=== PATIENT | male | born 1975 | race Two or more races ===

== ENCOUNTER 2018-04-12 18:09 | Observation (INO) | payer OTHER ==
[2018-04-12] MEDS ORDERED: SODIUM CHLORIDE 0.9% 500 ML INFUS.BAG IV ONE (18:34)
[2018-04-12] MEDS ORDERED: ONDANSETRON 4 MG/2 ML VIAL IVPUSH ONE (18:34)
[2018-04-12] MEDS ORDERED: ACETAMINOPHEN 1000 MG/100 ML VIAL (NON FORMULARY) IVPB ONE (18:34)
--- NOTE | 2018-04-12 18:36 | PDOC ---
Rapid Medical Evaluation Chief Complaint: Pain Time Seen by Provider: 04/12/18 18:30 Medical Evaluation: Allergies Allergy/AdvReac Type Severity Reaction Status Date / Time No Known Drug Allergies Allergy Verified 04/12/18 18:30 04/12/18 18:31 42 year old with RUQ pain radiating from right posterior. + nausea pain 10/. denies flank pain, urinary symptoms PE: patient alert ox3 epigastric to RUQ tenderness. no CVAT A: abdominal pain P: labs u/s ua patient to the ER for further management of care. 04/12/18 18:35 Discharge Disposition - Diagnosis Epigastric abdominal pain - Referrals Referrals: Rodriguez Baez MD [Primary Care Provider] - - Patient Instructions - Post Discharge Activity
[2018-04-12] MEDS ORDERED: ACETAMINOPHEN INJECTION 100 ML IVPB ONE (19:06)
[2018-04-12] MEDS ORDERED: ONDANSETRON 4 MG/2 ML VIAL ONE (19:07)
[2018-04-12 19:20] LABS: BASO % 0.4 % (0-2.0); EOS % 0.8 % (0-4.5); HEMATOCRIT 43.9 % (35.4-49); HEMOGLOBIN 14.7 GM/dL (11.7-16.9); LYMPH % 23.4 % (8-40); MCH 28.6 pg (25.7-33.7); MCHC 33.6 g/dl (32.0-35.9); MEAN CELL VOLUME 85.3 fl (80-96); MEAN PLT VOLUME 9.2 fl (7.5-11.1); MONO % 6.4 % (3.8-10.2); PLATELET COUNT 227 K/MM3 (134-434); RBC 5.15 M/mm3 (4.00-5.60); RDW 13.1 % (11.9-15.9); WHITE BLOOD COUNT 9.9 K/mm3 (4.0-10.0)
[2018-04-12] MEDS ORDERED: ONDANSETRON 4 MG/2 ML VIAL IVPB ONE (19:22)
--- NOTE | 2018-04-12 19:41 | PDOC ---
History of Present Illness - General Chief Complaint: Pain, Acute Stated Complaint: BACK PAIN/ABD PAIN Time Seen by Provider: 04/12/18 18:30 History Source: Patient Exam Limitations: No Limitations - History of Present Illness Initial Comments: 42 y/o M hx of GERD, R kidney stone (around 10 years ago, s/p lithotripsy), presents with upper back back that started around 3:30 PM which eventually subsided and then an hour later, had sharp upper abdominal pain (most intense along epigastric site) with nausea and dry heaving. Patient took 1000 mg of Tylenol at home. Denies having pain around this location before and states it does not feel like his GERD. Denies other abdominal surgeries. Denies fever, chills, sob, cp, vomiting, diarrhea, black/bloody stools, dysuria, hematuria. Denies smoking or drug use. Is social alcohol drinker (drinks only on weekends) 04/12/18 19:38 Past History - Past Medical History Allergies/Adverse Reactions: Allergies Allergy/AdvReac Type Severity Reaction Status Date / Time No Known Drug Allergies Allergy Verified 04/12/18 18:30 Home Medications: Ambulatory Orders Omeprazole 40 mg PO PRN 12/03/17 COPD: No GI Disorders: Yes (ACID REFLUX) - Suicide/Smoking/Psychosocial Hx Smoking History: Former smoker Have you smoked in the past 12 months: No If you are a former smoker, when did you quit?: 9 YRS AGO Information on smoking cessation initiated: No Hx Alcohol Use: Yes (SOCIAL) Drug/Substance Use Hx: No Substance Use Type: Alcohol Hx Substance Use Treatment: No Abd/GI Specific PMHX - Complaint Specific PMHX Colitis: No Diverticulitis: No Gall Bladder Disease: No GERD: Yes Hepatitis: No Irritable Bowel Synd (IBS): No Pancreatitis: No GI Ulcer Disease: No Other History: Kidney stones (right) Review of Systems - Review of Systems Comments:: See HPI 04/12/18 19:41 *Physical Exam - Vital Signs Last Vital Signs Temp Pulse Resp BP Pulse Ox 97.9 F 82 19 154/74 96 04/12/18 18:30 04/12/18 18:30 04/12/18 18:30 04/12/18 18:30 04/12/18 18:30 - Physical Exam General Appearance: No: Apparent Distress Respiratory/Chest: positive: Lungs Clear, Normal Breath Sounds. negative: Respiratory Distress Cardiovascular: positive: Regular Rhythm, Regular Rate, S1, S2. negative: Murmur Gastrointestinal/Abdominal: positive: Normal Bowel Sounds, Soft, Other ( Negative 's sign). negative: Tender, Distended, Guarding, Rebound, Tenderness Musculoskeletal: negative: CVA Tenderness Extremity: positive: Normal Inspection. negative: Pedal Edema, Calf Tenderness Neurologic: positive: Fully Oriented, Alert, Normal Mood/Affect ED Treatment Course - LABORATORY CBC & Chemistry Diagram: 04/12/18 19:03 04/12/18 19:03 - ADDITIONAL ORDERS Additional order review: 04/12/18 19:03 RBC 5.15 MCV 85.3 MCHC 33.6 RDW 13.1 MPV 9.2 Neutrophils % 69.0 Lymphocytes % 23.4 D Monocytes % 6.4 Eosinophils % 0.8 Basophils % 0.4 - Medications Given in the ED: ED Medications Discontinued Medications Generic Name Dose Route Start Last Admin Trade Name Freq PRN Reason Stop Dose Admin Acetaminophen 1,000 mg 04/12/18 18:34 04/12/18 19:16 Ofirmev Injection - IVPB 04/12/18 18:35 1,000 mg ONCE ONE Administration Ondansetron HCl 4 mg 04/12/18 18:34 04/12/18 19:26 Zofran Injection IVPUSH 04/12/18 18:35 Not Given ONCE ONE Ondansetron HCl 4 mg 04/12/18 19:22 04/12/18 19:25 Zofran Injection IVPB 04/12/18 19:23 4 mg ONCE ONE Administration Sodium Chloride 1,000 ml 04/12/18 18:34 04/12/18 19:16 Normal Saline - IV 04/12/18 18:35 1,000 ml ONCE ONE Administration Medical Decision Making - Medical Decision Making 42 y/o M hx of GERD presents with upper abdominal pain now improved from 8/10 to 5/10 after taking Tylenol. PE unremarkable. Consider gallstones, pancreatitis , cholecystitis, kidney stones Plan: CBC, CMP, lipase, UA, IVF, Zofran, RUQ ultrasound Reassess 04/12/18 19:41 Patient was reassessed and in no pain currently. Labs show normal LFTs and lipase; UA negative RUQ ultrasound raises concern for acute cholecystitis Patient given dose of Zosyn Case was discussed with surgeon, Dr. Pamella Flanagan, who stated patient not candidate for cholecystectomy; can likely go outpatient on Augmentin However, as case discussed with ED attending, will admit patient as observation for further monitoring Plan of care discussed with patient Patient admitted under Dr. Lemus 04/12/18 21:57 *DC/Admit/Observation/Transfer Diagnosis at time of Disposition: Epigastric abdominal pain, Cholecystitis - Discharge Dispostion Decision to Admit order: Yes - Referrals Referrals: Rodriguez Baez MD [Primary Care Provider] - - Patient Instructions - Post Discharge Activity
[2018-04-12 19:46] LABS: URINE APPEARANCE CLEAR; URINE BILIRUBIN NEGATIVE (<2.0 mg/dL); URINE COLOR LTYELLOW; URINE GLUCOSE (UA) NEGATIVE (NEGATIVE); URINE KETONE NEGATIVE (NEGATIVE); URINE LEUK ESTERASE NEGATIVE (NEGATIVE); URINE NITRITE NEGATIVE (NEGATIVE); URINE PROTEIN NEGATIVE (NEGATIVE); URINE UROBILINOGEN NEGATIVE mg/dL (0.2-1.0)
[2018-04-12 19:49] LABS: ALBUMIN 4.2 g/dl (3.4-5.0); ALK PHOS 121 U/L (45-117); ANION GAP 7 MMOL/L (8-16); BILIRUBIN,TOTAL 0.7 mg/dL (0.2-1); BLOOD UREA NITROGEN 10 mg/dL (7-18); CALCIUM 8.6 mg/dL (8.5-10.1); CHLORIDE 103 mmol/L (98-107); CO2 26 mmol/L (21-32); CREATININE 0.9 mg/dL (0.55-1.3); GLUCOSE,RANDOM 101 mg/dL (74-106); LIPASE 271 U/L (73-393); POTASSIUM 4.1 mmol/L (3.5-5.1); SGOT/AST 26 U/L (15-37); SGPT/ALT 61 U/L (13-61); SODIUM 136 mmol/L (136-145); TOT PROT 7.9 g/dl (6.4-8.2)
[2018-04-12] MEDS ORDERED: PIPERACILLIN/TAZOB 3.375 GM 3.375 GM in DEXTROSE 5%-WATER - 50 ML IVPB ONE (21:17)
[2018-04-12] MEDS ORDERED: PIPERACILLIN/TAZOB 3.375 GM 3.375 GM/50 ML BAG IVPB ONE (21:50)
--- NOTE | 2018-04-12 22:23 | PDOC ---
*Physical Exam - Vital Signs Last Vital Signs Temp Pulse Resp BP Pulse Ox 97.9 F 82 19 154/74 96 04/12/18 18:30 04/12/18 18:30 04/12/18 18:30 04/12/18 18:30 04/12/18 18:30 - Physical Exam General Appearance: Yes: Nourished Neck: positive: Trachea midline Respiratory/Chest: positive: Lungs Clear, Normal Breath Sounds Cardiovascular: positive: Regular Rhythm, Regular Rate, S1, S2 Gastrointestinal/Abdominal: positive: Normal Bowel Sounds, Tender, Soft, Tenderness (ruq ttp, no rebound no guarding. ), Other Extremity: positive: Normal Capillary Refill Integumentary: positive: Normal Color, Dry, Warm Neurologic: positive: Fully Oriented, Alert, Normal Mood/Affect ED Treatment Course - LABORATORY CBC & Chemistry Diagram: 04/12/18 19:03 04/12/18 19:03 - ADDITIONAL ORDERS Additional order review: Laboratory Results 04/12/18 04/12/18 19:20 19:03 Sodium 136 Potassium 4.1 Chloride 103 Carbon Dioxide 26 Anion Gap 7 L BUN 10 Creatinine 0.9 Creat Clearance w eGFR > 60 Random Glucose 101 Calcium 8.6 Total Bilirubin 0.7 AST 26 ALT 61 Alkaline Phosphatase 121 H Total Protein 7.9 Albumin 4.2 Lipase 271 Urine Color Ltyellow Urine Appearance Clear Urine pH 6.0 Ur Specific [place] 1.018 Urine Protein Negative Urine Glucose (UA) Negative Urine Ketones Negative Urine Blood Negative Urine Nitrite Negative Urine Bilirubin Negative Urine Urobilinogen Negative Ur Leukocyte Esterase Negative 04/12/18 19:03 RBC 5.15 MCV 85.3 MCHC 33.6 RDW 13.1 MPV 9.2 Neutrophils % 69.0 Lymphocytes % 23.4 D Monocytes % 6.4 Eosinophils % 0.8 Basophils % 0.4 - Medications Given in the ED: ED Medications Discontinued Medications Generic Name Dose Route Start Last Admin Trade Name Freq PRN Reason Stop Dose Admin Acetaminophen 1,000 mg 04/12/18 18:34 04/12/18 19:16 Ofirmev Injection - IVPB 04/12/18 18:35 1,000 mg ONCE ONE Administration Piperacillin Sod/Tazobactam 50 mls @ 100 mls/hr 04/12/18 21:17 04/12/18 22:06 Sod 3.375 gm/ Dextrose IVPB 04/12/18 21:46 100 mls/hr ONCE ONE Administration Protocol Ondansetron HCl 4 mg 04/12/18 18:34 04/12/18 19:26 Zofran Injection IVPUSH 04/12/18 18:35 Not Given ONCE ONE Ondansetron HCl 4 mg 04/12/18 19:22 04/12/18 19:25 Zofran Injection IVPB 04/12/18 19:23 4 mg ONCE ONE Administration Sodium Chloride 1,000 ml 04/12/18 18:34 04/12/18 19:16 Normal Saline - IV 04/12/18 18:35 1,000 ml ONCE ONE Administration Medical Decision Making - Medical Decision Making 04/12/18 22:17 42 yo male with h.o renal stones here today c/o upper abd pain, ruq. started today. had severe nausea associated with pain. felt sharp, referred to her back. no f/c no change to stool, no mod factors. reminded him of prior renal stones, but was in different location. no f/c no other copmlaints. no urinary sxs, no hematuria. on exam pt with mild ruq ttp, epigastric ttp. no rebound no guarding. e differential gastritis, pancreatitis cholelithiasis, cholecystitis. renal colic. plan abd us ruq. abd us ruq noted for large 1 cm stone in the neck, distended gb and wall thickening concerns for cholecystitis. will admit for surgery consult. *DC/Admit/Observation/Transfer Diagnosis at time of Disposition: Epigastric abdominal pain, Cholecystitis - Referrals Referrals: Rodriguez Baez MD [Primary Care Provider] - - Patient Instructions - Post Discharge Activity
--- NOTE | 2018-04-12 22:32 | HP ---
CHIEF COMPLAINT: RUQ pain PCP: Dr. Baez HISTORY OF PRESENT ILLNESS: 42 y/o male with PMH of GERD, kidney stones presents to the ED with RUQ and epigastric pain radiating to the right shoulder. Patient states that pain started while he was at work, it was originally the right shoulder pain that began his pain sequence than the epigastric pain followed. patient stated that at its worst the pain was an 8/10. He had some associated dry heaves, however, he had no vomiting or diarrhea. He took two tylenol for the pain, however, that did not help him and so he came to the ER. Of note, patient states that he had a similar episode like this a month ago and came to the ER ad was discharged with medication for his GERD. However, once patient got to the hospital and got 1 more dose of tylenol his pain resolved ER course was notable for: (1)vitals stable (2)labs unremarkable (3)abdominal U/S showing 1 cm calculus in GB neck, moderate gallbladder distention, mild diffuse GB thickening no pericholecystic fluid seen; no CBD dilatation Recent Travel: none PAST MEDICAL HISTORY: see above PAST SURGICAL HISTORY: lithotrypsy 10 years ago for kidney stones Social History: Smoking:former; quit 9 years ago Alcohol:social alcohol use (1-2 drinks on weekends) Drugs: denies Family History: father: DM/HTN/ colon ca 3 years ago Allergies No Known Drug Allergies Allergy (Verified 04/12/18 18:30) HOME MEDICATIONS: Home Medications Medication Instructions Recorded Omeprazole 40 mg PO PRN 12/03/17 REVIEW OF SYSTEMS CONSTITUTIONAL: Absent: fever, chills, diaphoresis, generalized weakness, malaise, loss of appetite, weight change HEENT: Absent: rhinorrhea, nasal congestion, throat pain, throat swelling, difficulty swallowing, mouth swelling, ear pain, eye pain, visual changes CARDIOVASCULAR: Absent: chest pain, syncope, palpitations, irregular heart rate, lightheadedness , peripheral edema RESPIRATORY: Absent: cough, shortness of breath, dyspnea with exertion, orthopnea, wheezing, stridor, hemoptysis GASTROINTESTINAL: Absent: abdominal pain, abdominal distension, nausea, vomiting, diarrhea, constipation, melena, hematochezia GENITOURINARY: Absent: dysuria, frequency, urgency, hesitancy, hematuria, flank pain, genital pain MUSCULOSKELETAL: Absent: myalgia, arthralgia, joint swelling, back pain, neck pain SKIN: Absent: rash, itching, pallor HEMATOLOGIC/IMMUNOLOGIC: Absent: easy bleeding, easy bruising, lymphadenopathy, frequent infections ENDOCRINE: Absent: unexplained weight gain, unexplained weight loss, heat intolerance, cold intolerance NEUROLOGIC: Absent: headache, focal weakness or paresthesias, dizziness, unsteady gait, seizure, mental status changes, bladder or bowel incontinence PSYCHIATRIC: Absent: anxiety, depression, suicidal or homicidal ideation, hallucinations. PHYSICAL EXAMINATION Vital Signs - 24 hr 04/12/18 18:30 Temperature 97.9 F Pulse Rate 82 Respiratory 19 Rate Blood Pressure 154/74 O2 Sat by Pulse 96 Oximetry (%) GENERAL: Awake, alert, and fully oriented, in no acute distress. EYES: no scleral icterus NECK:no JVD, no lymphadenopathy LUNGS: CTA B/L; no rales, rhonchi or wheezing. HEART: Regular rate and rhythm, normal S1 and S2 without murmur, rub or gallop. ABDOMEN: Soft, nontender, not distended, normoactive bowel sounds, no guarding, no rebound, no masses. No hepatomegaly or splenomegaly negative [place] sign. MUSCULOSKELETAL: Normal range of motion at all joints. No bony deformities or tenderness. No CVA tenderness. EXTREMITIES: warm; well-perfused, no clubbing/cyanosis or edema. PSYCHIATRIC: Cooperative. Good eye contact. Appropriate mood and affect. SKIN: Warm, dry, normal turgor, no rashes or lesions noted, normal capillary refill. Laboratory Results - last 24 hr 04/12/18 04/12/18 04/12/18 19:03 19:03 19:20 WBC 9.9 RBC 5.15 Hgb 14.7 Hct 43.9 MCV 85.3 MCH 28.6 MCHC 33.6 RDW 13.1 Plt Count 227 MPV 9.2 Absolute Neuts (auto) 6.9 Neutrophils % 69.0 Lymphocytes % 23.4 D Monocytes % 6.4 Eosinophils % 0.8 Basophils % 0.4 Nucleated RBC % 0 Sodium 136 Potassium 4.1 Chloride 103 Carbon Dioxide 26 Anion Gap 7 L BUN 10 Creatinine 0.9 Creat Clearance w eGFR > 60 Random Glucose 101 Calcium 8.6 Total Bilirubin 0.7 AST 26 ALT 61 Alkaline Phosphatase 121 H Total Protein 7.9 Albumin 4.2 Lipase 271 Urine Color Ltyellow Urine Appearance Clear Urine pH 6.0 Ur Specific [place] 1.018 Urine Protein Negative Urine Glucose (UA) Negative Urine Ketones Negative Urine Blood Negative Urine Nitrite Negative Urine Bilirubin Negative Urine Urobilinogen Negative Ur Leukocyte Esterase Negative ASSESSMENT/PLAN: 42 y/o male with PMH of GERD and kidney stones presents to the ED with complaints of RUQ and epigastric pain radiating to the right shoulder #RUQ pain on ab US: 1 cm calculus in GB neck, moderate GB distention, mild diffuse GB thickening with no fluid seen or no CBD dilatation -ED spoke to surgeon, Dr. Flanagan, who states that patient is not a candidate for surgery and will see him Sunday as an outpatient and to start with PO Augmentin 875 BID -getting 1 dose of zosyn in ED -LR @100mls/hr -protonix 40 daily -NPO for now -monitor for pain symptoms #GERD -c/w omeprazole 40 daily F/E/N LR @100mls/hr monitor electrolytes NPO for now DVT PPX: heparin 5000 SQ Problem List - Problem (1) Cholecystitis Code(s): K81.9 - CHOLECYSTITIS, UNSPECIFIED (2) Epigastric abdominal pain Code(s): R10.13 - EPIGASTRIC PAIN Visit type - Emergency Visit Emergency Visit: Yes Care time: The patient presented to the Emergency Department on the above date and was hospitalized for further evaluation of their emergent condition. - New Patient This patient is new to me today: Yes Date on this admission: 04/12/18 - Critical Care Critical Care patient: No
[2018-04-12] MEDS ORDERED: HEPARIN NA (PORCINE) 5,000 UNITS/ML 1ML VIAL ONE (22:33)
[2018-04-12] MEDS ORDERED: PANTOPRAZOLE SODIUM 40 MG/100 ML BAG IVPB ONE (22:33)
--- NOTE | 2018-04-12 22:42 | PN ---
Teaching Attending Note Name of Resident: Freddy Lloyd ATTENDING PHYSICIAN STATEMENT I saw and evaluated the patient. I reviewed the resident's note and discussed the case with the resident. I agree with the resident's findings and plan as documented. CC: RUQ pain SUBJECTIVE: 42 y/o HM with a PMH significant for renal stones 10 yrs ago s/p lithotripsy and obesity presents to the ER with recurring RUQ pain x1 day that has resolved at the time we saw him. For further documentation please refer to the resident note. He experienced abdominal pain after eating coffee and a turkey sandwich; this was the same pain that brought him to the hospital back in the past. Nothing made it better or worse and was waxing and waning in nature. Benign abd exam. He is hungry now and wants to eat. He was seen on CT scan to have a mildly distended GB with mild diffuse GB wall thickening and a stone in the neck of the BG with normal CBD that was suggestive of cholecystitis. ER spoke with claudette who stated to place him on Augmentin and have him followup outpatient. Concern existed that he needed admitted for observation so he will be brought to the medicine service for further tx and monitoring. 10 sys ROS done and negative aside from HPI PMH and PSH reviewed and are as per chart FH asked and noncontributory Socially denies EtOH and tobacco abuse (quit 9 years ago, 10 pack years total) OBJECTIVE: VS stable. All labs and imaging reviewed NAD, AAOx3 NT ND +BS no organomegaly RRR s1/2 no mgr Lungs CTAB with sym exp CN2-12 wnl, no fnd Labs show no white count (acutally decreased from 11/2017) and mildly elevated Alk Phos that is also less than it was in 2018. UA unremarkable, chemistry and rest of CBC unremarkable RUQ US shows 1cm calculus in GB neck with mild to moderate distention and diffuse mild thickening with no pericholecystic fluid and 0.4 CBD. Incidentally found hepatic steatosis ASSESSMENT AND PLAN: Mr. Banerjee is a 42 y/o male presenting with RUQ pain that likely is due to underlying GB issues that may represent cholecystitis. 1) Acute RUQ Abdominal Pain -Labs, imaging, and history suggest acute GB pathology given the radiology report that could be cholecystitis (however no pericholecystic fluid). Notably , the patient has no white count and no fever and his pain is now completely resolved and is requesting to eat. Surgery said to follow up and see him in the office after being discharged on PO abx but concern persisted. -Placing on PO Levaquin/[place] (as surgery requested PO abx) and consulting sgy. Leaving NPO overnight in case something changes acutely and placing on IVF. Will discuss with sgy tomorrow, trend CMP and check ESR/CRP. If they continue to feel that he remains safe for discharge we will likely be able to dispo the patient per specialty service. 2) Obesity -Medical Billing Coordinator on lifestyle modifications prior to DC. BMI 30 3) Hepatic Steatosis -Followup with PCP; recommend lifestyle modifications. Alk phos trending down from where it was. Full Code FENA -LR@100 -PRN replete -NPO for now -As tolerated
[2018-04-12] MEDS: PANTOPRAZOLE SODIUM 40 MG VIAL IVPUSH ONE ×2 (22:51→22:54)
[2018-04-12] MEDS: HEPARIN NA (PORCINE) 5,000 UNITS/ML 1ML VIAL SQ SCH (22:53)
[2018-04-12] MEDS: LACTATED RINGERS SOLUTION 1,000 ML/1,000 ML INFUS.BAG IV SCH (22:53)
[2018-04-13 02:40] VITALS: BMI 30.2
[2018-04-13] MEDS: LACTATED RINGERS SOLUTION 1,000 ML/1,000 ML INFUS.BAG IV SCH (02:46)
[2018-04-13] MEDS: HEPARIN NA (PORCINE) 5,000 UNITS/ML 1ML VIAL SQ SCH (06:07)
[2018-04-13 07:50] LABS: HEMATOCRIT 42.3 % (35.4-49); MCH 28.4 pg (25.7-33.7); MCHC 33.1 g/dl (32.0-35.9); MEAN CELL VOLUME 85.9 fl (80-96); MEAN PLT VOLUME 9.6 fl (7.5-11.1); PLATELET COUNT 201 K/MM3 (134-434); RBC 4.93 M/mm3 (4.00-5.60); RDW 13.4 % (11.9-15.9); WHITE BLOOD COUNT 8.8 K/mm3 (4.0-10.0)
[2018-04-13] MEDS ORDERED: metroNIDAZOLE 250 MG TABLET PO SCH (08:00)
[2018-04-13 08:18] LABS: ALBUMIN 3.6 g/dl (3.4-5.0); ALK PHOS 100 U/L (45-117); ANION GAP 5 MMOL/L (8-16); BLOOD UREA NITROGEN 6 mg/dL (7-18); CALCIUM 8.5 mg/dL (8.5-10.1); CHLORIDE 108 mmol/L (98-107); CO2 28 mmol/L (21-32); CREATININE 0.6 mg/dL (0.55-1.3); GLUCOSE,RANDOM 81 mg/dL (74-106); MAGNESIUM 2.5 mg/dL (1.8-2.4); PHOSPHOROUS 2.8 mg/dL (2.5-4.9); POTASSIUM 4.1 mmol/L (3.5-5.1); SGOT/AST 22 U/L (15-37); SGPT/ALT 50 U/L (13-61); SODIUM 141 mmol/L (136-145); TOT PROT 6.7 g/dl (6.4-8.2)
--- NOTE | 2018-04-13 08:43 | DS ---
Physical Exam: SUBJECTIVE: Patient seen and examined. pain is resolved. requesting to eat. denies CP, SOB, fever, chills, N/V/C/D. no previous episodes in the past OBJECTIVE: Vital Signs Period Temp Pulse Resp BP Sys/[place] Pulse Ox Last 24 Hr 97 F-98 F 53-82 16-19 104-154/57-74 96-99 PHYSICAL EXAM GENERAL: The patient is awake, alert, and fully oriented, in no acute distress. HEAD: Normal with no signs of trauma. EYES: PERRL, extraocular movements intact, sclera anicteric, conjunctiva clear. ENT: Ears normal, nares patent, oropharynx clear without exudates, moist mucous membranes. NECK: Trachea midline, full range of motion, supple. LUNGS: Breath sounds equal, clear to auscultation bilaterally, no wheezes, no crackles, no accessory muscle use. HEART: Regular rate and rhythm, S1, S2 without murmur, rub or gallop. ABDOMEN: Soft, nontender, nondistended, normoactive bowel sounds, no guarding, no rebound, no hepatosplenomegaly, no masses. EXTREMITIES: 2+ pulses, warm, well-perfused, no edema. NEUROLOGICAL: Cranial nerves II through XII grossly intact. Normal speech, gait not observed. PSYCH: Normal mood, normal affect. SKIN: Warm, dry, normal turgor, no rashes or lesions noted. LABS Laboratory Results - last 24 hr 04/12/18 04/12/18 04/12/18 19:03 19:03 19:03 WBC 9.9 RBC 5.15 Hgb 14.7 Hct 43.9 MCV 85.3 MCH 28.6 MCHC 33.6 RDW 13.1 Plt Count 227 MPV 9.2 Absolute Neuts (auto) 6.9 Neutrophils % 69.0 Lymphocytes % 23.4 D Monocytes % 6.4 Eosinophils % 0.8 Basophils % 0.4 Nucleated RBC % 0 Sodium 136 Potassium 4.1 Chloride 103 Carbon Dioxide 26 Anion Gap 7 L BUN 10 Creatinine 0.9 Creat Clearance w eGFR > 60 Random Glucose 101 Calcium 8.6 Phosphorus Magnesium Total Bilirubin 0.7 AST 26 ALT 61 Alkaline Phosphatase 121 H C-Reactive Protein 0.4 H Total Protein 7.9 Albumin 4.2 Lipase 271 Urine Color Urine Appearance Urine pH Ur Specific [place] Urine Protein Urine Glucose (UA) Urine Ketones Urine Blood Urine Nitrite Urine Bilirubin Urine Urobilinogen Ur Leukocyte Esterase 04/12/18 04/13/18 04/13/18 19:20 06:30 06:30 WBC 8.8 RBC 4.93 Hgb 14.0 Hct 42.3 MCV 85.9 MCH 28.4 MCHC 33.1 RDW 13.4 Plt Count 201 MPV 9.6 Absolute Neuts (auto) Neutrophils % Lymphocytes % Monocytes % Eosinophils % Basophils % Nucleated RBC % Sodium 141 Potassium 4.1 Chloride 108 H Carbon Dioxide 28 Anion Gap 5 L BUN 6 L Creatinine 0.6 Creat Clearance w eGFR > 60 Random Glucose 81 Calcium 8.5 Phosphorus 2.8 Magnesium 2.5 H Total Bilirubin 1.0 AST 22 ALT 50 Alkaline Phosphatase 100 C-Reactive Protein Total Protein 6.7 Albumin 3.6 Lipase Urine Color Ltyellow Urine Appearance Clear Urine pH 6.0 Ur Specific [place] 1.018 Urine Protein Negative Urine Glucose (UA) Negative Urine Ketones Negative Urine Blood Negative Urine Nitrite Negative Urine Bilirubin Negative Urine Urobilinogen Negative Ur Leukocyte Esterase Negative HOSPITAL COURSE: Date of Admission:04/12/18 Date of Discharge: 04/13/18 Admitting diagnosis: Acute cholecystitis Pre hospital course 42 y/o HM with a PMH significant for renal stones 10 yrs ago s/p lithotripsy and obesity presents to the ER with recurring RUQ pain x1 day that has resolved at the time we saw him. For further documentation please refer to the resident note. He experienced abdominal pain after eating coffee and a turkey sandwich; this was the same pain that brought him to the hospital back in the past. Nothing made it better or worse and was waxing and waning in nature. Benign abd exam. He is hungry now and wants to eat. He was seen on CT scan to have a mildly distended GB with mild diffuse GB wall thickening and a stone in the neck of the BG with normal CBD that was suggestive of cholecystitis. ER spoke with claudette who stated to place him on Augmentin and have him followup outpatient. Concern existed that he needed admitted for observation so he will be brought to the medicine service for further tx and monitoring. Subsequent hospital course medicine observation. no fever no leukocytosis, normal LFT. started on IVF, flagyl and levaquin. pain resolved. spoke with surgeon. no emergency for cholecystectomy at this time and can be done electively as outpatient. d/c home on levaquin and flagyl with instruction to f/u next week for surgery. pt verbalized understanding and agreement with plan Minutes to complete discharge: 40 Discharge Summary Reason For Visit: CHOLECYSTITIS Current Active Problems Cholecystitis (Acute) Epigastric abdominal pain (Acute) Condition: Improved - Instructions Diet, Activity, Other Instructions: You were observed overnight in the hospital due to your pain. It was found that you have gallstones and inflammation of your gallbladder You will need to have your gallbladder removed and need to follow up with the surgeon next week to schedule this. His information has been provided Drink a clear liquid diet until you are evaluated by the surgeon. You are being sent home on antibiotics, take as instructed until completed, even if your symptoms resolve You can take tylenol or motrin as needed for pain Follow up with your primary care doctor in 1 week If you develop fever (temp >101), chest pain or intractable stomach pain return to the ER. Referrals: Rodriguez Baez MD [Primary Care Provider] - Sergio Flanagan MD [Staff Physician] - (surgeon. Call for Appointment on Sunday) Disposition: HOME - Home Medications Comprehensive Discharge Medication List: Ambulatory Orders levoFLOXacin [Levaquin] 750 mg PO DAILY #6 tab 04/13/18 metroNIDAZOLE [Flagyl -] 500 mg PO TID #20 tablet 04/13/18 This patient is new to me today: Yes Date on this admission: 04/13/18 Emergency Visit: Yes ED Registration Date: 04/12/18 Care time: The patient presented to the Emergency Department on the above date and was hospitalized for further evaluation of their emergent condition. Critical Care patient: No - Discharge Referral Referred to [facility] Yes Physician Referral: Rodriguez Bui MD ([facility])
[2018-04-13] MEDS ORDERED: PT OWN MED DRAWER 7, Y5N ONE (08:59)
[2018-04-13] MEDS ORDERED: FLU VACCINE QUAD 60 MCG/0.5 ML (MDV 18-19) IM ONE (10:00)
[2018-04-13] MEDS ORDERED: levoFLOXacin 750 MG TABLET PO SCH (10:00)
[2018-04-13 10:28] VITALS: BP 116/66; PULSE 58; TEMP 98.3
--- NOTE | 2018-04-15 18:34 | EKG ---
Test Reason : Blood Pressure : / mmHG Vent. Rate : 057 BPM Atrial Rate : 057 BPM P-R Int : 136 ms QRS Dur : 096 ms QT Int : 432 ms P-R-T Axes : 002 -07 002 degrees QTc Int : 420 ms SINUS BRADYCARDIA OTHERWISE NORMAL ECG WHEN COMPARED WITH ECG OF 30-AUG-2010 12:23, NO SIGNIFICANT CHANGE WAS FOUND Confirmed by NHAN CERRATO MD ([id number]) on 04/15/2018 6:33:56 PM Referred By: Confirmed By:NHAN CERRATO MD
== END 2018-04-13 10:50 | disposition home or self-care (01) ==
LOC: JER 18:09 → JERBED 21:50 → J8W 04-13 02:24
PROVIDERS: ADMIT Internal Medicine; ATTEND Internal Medicine
PROC: 3E03329 Introduction of Other Anti-infective into Peripheral Vein, Percutaneous Approach (ICD-10-PCS; principal; 2018-04-12)
PROC: 3E033NZ Introduction of Analgesics, Hypnotics, Sedatives into Peripheral Vein, Percutaneous Approach (ICD-10-PCS; 2018-04-12)
PROC: 3E0337Z Introduction of Electrolytic and Water Balance Substance into Peripheral Vein, Percutaneous Approach (ICD-10-PCS; 2018-04-12)
PROC: 3E033GC Introduction of Other Therapeutic Substance into Peripheral Vein, Percutaneous Approach (ICD-10-PCS; 2018-04-12)
PROC: 3E0234Z Introduction of Serum, Toxoid and Vaccine into Muscle, Percutaneous Approach (ICD-10-PCS; 2018-04-12)
DX: K81.9 Cholecystitis, unspecified (principal); R10.13 Epigastric pain; Z87.891 Personal history of nicotine dependence; K21.9 Gastro-esophageal reflux disease without esophagitis; E66.9 Obesity, unspecified; Z68.30 Body mass index [BMI] 30.0-30.9, adult; K76.0 Fatty (change of) liver, not elsewhere classified; Z23 Encounter for immunization
CPT/HCPCS: 36415; 76705-TC; 80053; 81003; 83690; 83735; 84100; 85025; 85027; 85651; 86140; 90688; 93005; 93010; 99284-25; G0378; J0131; J1644

== ENCOUNTER 2018-05-17 09:19 | Day surgery (SDC) | payer OTHER ==
[2018-05-16 15:53] VITALS: BMI 29.7
[2018-05-17] MEDS ORDERED: fentaNYL CITRATE 250 MCG/5 ML VIAL ONE (10:03)
[2018-05-17] MEDS ORDERED: MIDAZOLAM HCL 2 MG/2 ML SINGLE DOSE VIAL ONE ×2 (10:04→11:17)
[2018-05-17] MEDS ORDERED: BUPIVACAINE HCL/PF 0.5% (5MG/ML) 10 ML VIAL ONE (10:38)
--- NOTE | 2018-05-17 10:42 | HP ---
History & Physical Update - History History: No Change - Physical Physical: No Change - Assessment Assessment: No Change - Plan Plan: No Change (Full H&P in paper chart on 04/30/18)
[2018-05-17] MEDS ORDERED: ceFAZolin SODIUM 1 GM VIAL IVPB ONE (11:04)
[2018-05-17] MEDS ORDERED: BUPIVACAINE HCL/PF 0.5% (5MG/ML) 10 ML VIAL IJ ONE ×2 (11:20→11:55)
[2018-05-17] MEDS ORDERED: NEOSTIGMINE METHYLSULFATE 0.5 MG/ML - 10 ML MDV ONE (11:50)
--- NOTE | 2018-05-17 11:59 | OP ---
Operative Note - Note: Operative Date: 05/17/18 Pre-Operative Diagnosis: cholelithiasis/chronic cholecystitis Operation: laparoscopic cholecystectomy Findings: as above Post-Operative Diagnosis: Same as Pre-op Surgeon: Seng Stout Tester Regulator: Angela Wu Anesthesiologist/PASSENGER TIRE BUILDER: Bam Dykes Anesthesia: General Specimens Removed: gallbladder and contents Estimated Blood Loss (mls): 15
[2018-05-17] MEDS ORDERED: ACETAMINOPHEN 1000 MG/100 ML VIAL (NON FORMULARY) IVPB ONE (12:07)
--- NOTE | 2018-05-17 12:09 | SURG ---
Surgery Nursing Service Director Note Nursing Service Director: Angela Wu PA-C Date of Service: 05/17/18 Diagnosis: cholelithiasis/chronic cholecystitis Procedure: Laparoscopic cholecystectomy I was present for the entirety of the operative procedure. For further detail, please refer to operative report. Visit type - Case Type Case Type: Scheduled
[2018-05-17] MEDS ORDERED: ACETAMINOPHEN INJECTION 100 ML IVPB ONE (12:43)
[2018-05-17] MEDS ORDERED: oxyCODONE HCL 5 MG TABLET PO PRN ×2 (12:56)
[2018-05-17] MEDS ORDERED: ONDANSETRON 4 MG/2 ML VIAL IVPUSH PRN (12:56)
[2018-05-17] MEDS ORDERED: LACTATED RINGERS SOLUTION 1,000 ML IV SCH (13:00)
[2018-05-17 15:39] VITALS: BP 122/70; PULSE 70; TEMP 98.5
--- NOTE | 2018-05-20 11:14 | OP ---
DATE OF OPERATION: 05/17/2018 PREOPERATIVE DIAGNOSIS: Cholelithiasis, chronic cholecystitis. PREOPERATIVE DIAGNOSIS: Cholelithiasis, chronic cholecystitis. PROCEDURE: Laparoscopic cholecystectomy. SURGEON: Seng Stout MD HARDWARE DEVELOPER: DYLAN Zeng OPERATIVE FINDINGS: Chronic cholecystitis and cholelithiasis. The rest of the findings were unremarkable. DESCRIPTION OF PROCEDURE: The patient was placed on the operating room table in supine position. After the induction of general anesthesia, the patient's abdomen was prepped with ChloraPrep and draped in sterile fashion. Time-out was taken and then pneumoperitoneum established above the umbilicus using a Veress needle. Once 15 mm of intra-abdominal pressure was obtained, a 5-mm port was placed at the umbilicus. Additional lateral 5-mm ports and a subxiphoid 12-mm port were placed and laparoscopy carried out, and the previously noted findings were observed. The gallbladder was placed on cephalad and lateral traction, and dissection was begun at the neck of the gallbladder where the peritoneum was opened medially and laterally using blunt and sharp dissection and electrocautery. Dissection continued in the triangle of Calot where the cystic duct was identified coursing from the neck of the gallbladder distally to the common bile duct. It was dissected proximally and distally for length. Similarly, the artery was similarly identified and dissected. A critical view of safety was taken, and then the cystic duct divided proximally and distally using Endo Nazario after it was clipped twice proximally and distally with large hemoclips. The artery was similarly clipped and divided. Hemostasis was checked for and noted to be good and then the gallbladder was removed from the liver bed in a retrograde fashion using electrocautery. Prior to removal from the edge of the liver, hemostasis was again verified and then the gallbladder removed from the edge of the liver, placed in an EndoCatch, and brought out through the subxiphoid port. Pneumoperitoneum was reestablished, hemostasis verified again, and then the 5-mm lateral and subxiphoid ports were removed under laparoscopic vision without evidence of bleeding from the port sites. The umbilical port was removed and the pneumoperitoneum evacuated. All port sites were infiltrated with 0.5% Marcaine and the skin edges closed with 4-0 Biosyn in a subcuticular and continuous fashion. Steri-Strips and Band-Aid dressings were placed and the procedure terminated at this point and the patient aroused from general anesthesia and transferred to the post anesthesia care unit in stable condition awake and alert. ESTIMATED BLOOD LOSS: 15 mL. REPLACEMENTS: Crystalloid. DRAINS: None. SPECIMENS: Gallbladder and contents to pathology. I, Seng Stout, was physically present in the operating room from the time the patient was placed on the operating room table until she was transferred to the post anesthesia care unit in [employer]. MD BELEN Grove/[id number] MTDD
--- NOTE | 2018-05-20 17:28 | PATH ---
Surgical Pathology Report Patient Name: TIMO ROSE [facility]. Rec. #: [id number] /Age/Gender: 1975 (Age: 42) / M Account: [id number] Location: [facility] SURGICAL Taken: 05/16/2018 Received: 05/17/2018 Reported: 05/20/2018 Physicians: Seng Stout MD Specimen(s) Received GALLBLADDER Clinical History Cholelithiasis, chronic cholecystitis Final Diagnosis GALLBLADDER, CHOLECYSTECTOMY: CHRONIC CHOLECYSTITIS, CHOLESTEROLOSIS, AND CHOLELITHIASIS. Electronically Signed Odette Resendiz M.D. Gross Description Received in formalin, labeled "gallbladder," is a 6.8 x 3.2 x 2.0 cm. gallbladder with a 0.2 cm. in length portion of cystic duct attached. The outer surface is bauer-pink and varies from smooth to shaggy. The lumen contains green, tenacious bile as well as a 1.1 cm in diameter yellow, spherical cholelith. The mucosa is green with gold cholesterol stippling. The wall of the gallbladder averages 0.2 cm. in thickness. Warehouse Processor sections are submitted in one cassette. 05/17/2018 saudi05/17/2018
== END 2018-05-17 15:54 | disposition home or self-care (01) ==
LOC: JASU-SURG 09:19
PROVIDERS: ATTEND Surgery
PROC: 0FT44ZZ Resection of Gallbladder, Percutaneous Endoscopic Approach (ICD-10-PCS; principal; 2018-05-17 11:00)
DX: K80.10 Calculus of gallbladder with chronic cholecystitis without obstruction (principal)
CPT/HCPCS: 88304-TC; 94760; J0131

== ENCOUNTER 2019-06-26 12:01 | Emergency (ER) | payer OTHER ==
--- NOTE | 2019-06-26 12:18 | PDOC ---
Rapid Medical Evaluation Chief Complaint: Lightheaded Time Seen by Provider: 06/26/19 12:14 Medical Evaluation: Allergies Allergy/AdvReac Type Severity Reaction Status Date / Time No Known Drug Allergies Allergy Verified 06/26/19 12:14 06/26/19 12:15 CC: dizziness, left arm numbness, left chin numbness Pt is a 44 y/o male with dizziness 3 days ago which only happened once. Since yesterday has been having L arm and L chin numbness. No PMH as per patient. On brief exam: S1S2, No respiratory distress, pt comfortable in triage. Orders: EKG done in triage, labs ordered Proceed to ED for further evaluation
[2019-06-26 12:19] VITALS: TEMP 98.1; BMI 30.5
--- NOTE | 2019-06-26 13:04 | PDOC ---
History of Present Illness - General Chief Complaint: Head/Neck problem Stated Complaint: LF ARM NUMB/LF CHIN NUMB Time Seen by Provider: 06/26/19 12:14 History Source: Patient Exam Limitations: No Limitations - History of Present Illness Initial Comments: 06/26/19 13:00 44 yr old male presents ED with complaints of decreased sensation to his left upper arm Sunday night which resolved within minutes but states the following day had decreased sensation to his left neck and chin and also resolved. Patient states this morning then awoke and had decreased sensation now to his left arm and left neck without chest pain, shortness of breath, headache, or dizziness. Patient denies medical history recent travel, recent injury. Patient states increased stress in his life and feels as this is stress driven. Patient has no other complaints at this time. Is this a multiple visit Asthma Patient?: No Timing/Duration: changing over time Severity: mild Associated Symptoms: reports: denies symptoms Past History - Travel Traveled outside of the country in the last 30 days: No Close contact w/someone who was outside of country & ill: No - Past Medical History Allergies/Adverse Reactions: Allergies Allergy/AdvReac Type Severity Reaction Status Date / Time No Known Drug Allergies Allergy Verified 06/26/19 12:14 Home Medications: Ambulatory Orders NK [No Known Home Medication] 06/26/19 Anemia: No Asthma: No Cancer: No Cardiac Disorders: No CVA: No COPD: No CHF: No Dementia: No Diabetes: No GI Disorders: Yes (ACID REFLUX) Disorders: No HTN: No Hypercholesterolemia: No Liver Disease: No Seizures: No Thyroid Disease: No - Psycho Social/Smoking Cessation Hx Smoking History: Former smoker Have you smoked in the past 12 months: No If you are a former smoker, when did you quit?: 2018 Information on smoking cessation initiated: No Hx Alcohol Use: Yes (SOCIAL) Drug/Substance Use Hx: No Substance Use Type: Alcohol Hx Substance Use Treatment: No Patient Lives Alone: No Lives with/in: spouse/SO Review of Systems - Review of Systems Able to Perform ROS?: Yes Constitutional: No: Symptoms Reported HEENTM: No: Symptoms Reported Respiratory: No: Symptoms reported Cardiac (ROS): No: Symptoms Reported ABD/GI: No: Symptoms Reported : No: Symptoms Reported Musculoskeletal: No: Symptoms Reported Integumentary: No: Symptoms Reported Neurological: Yes: Paresthesia. No: Numbness, Tingling, Weakness Endocrine: No: Symptoms Reported Hematologic/Lymphatic: No: Symptoms Reported *Physical Exam - Vital Signs Last Vital Signs Temp Pulse Resp BP Pulse Ox 98.1 F 76 18 151/90 99 06/26/19 12:18 06/26/19 12:18 06/26/19 12:18 06/26/19 12:18 06/26/19 12:18 - Physical Exam General Appearance: Yes: Nourished, Appropriately Dressed. No: Apparent Distress HEENT: negative: Pale Conjunctivae Neck: positive: Supple Respiratory/Chest: positive: Lungs Clear, Normal Breath Sounds. negative: Respiratory Distress, Accessory Muscle Use Cardiovascular: positive: Regular Rhythm, Regular Rate. negative: Murmur Gastrointestinal/Abdominal: positive: Soft. negative: Tenderness Musculoskeletal: negative: CVA Tenderness Extremity: positive: Normal Inspection Integumentary: positive: Normal Color, Warm, Moist Neurologic: positive: Motor Strength 5/5 (ambulatory) ED Treatment Course - LABORATORY CBC & Chemistry Diagram: 06/26/19 13:00 06/26/19 13:00 - RADIOLOGY Radiology Studies Ordered: Category Date Time Status HEAD CT WITHOUT CONTRAST [CT] Stat CT Scan 06/26/19 12:50 Ordered Medical Decision Making - Medical Decision Making 06/26/19 13:03 CC: Decrease in station to left neck and left face intermittently now constant for the past 3 days. No other associated symptoms. Exam: Normal physical exam with no weakness but states does have decreased sensation to his left bicep and shoulder extending to his left trapezius with sharp sensation. Normal two-point discrimination Plan: Labs and imaging along with EKG ordered from [facility]. Will add a head CT secondary to BP of 151/90 but denies history of hypertension 06/26/19 14:16 Laboratory Tests 06/26/19 06/26/19 06/26/19 13:00 13:00 13:00 WBC 7.0 Hgb 15.7 Hct 46.1 Absolute Neuts (auto) 4.0 PT with INR 11.30 INR 0.96 PTT (Actin FS) 43.4 H Sodium Potassium Chloride Carbon Dioxide Anion Gap BUN Creatinine Random Glucose Calcium Magnesium Total Bilirubin ALT Alkaline Phosphatase Creatine Kinase 308 Creatine Kinase Index 0.3 CK-MB (CK-2) 1.2 Troponin I < 0.02 Total Protein Albumin 06/26/19 13:00 WBC Hgb Hct Absolute Neuts (auto) PT with INR INR PTT (Actin FS) Sodium 139 Potassium 4.0 Chloride 107 Carbon Dioxide 26 Anion Gap 7 L BUN 12.0 Creatinine 0.9 Random Glucose 92 Calcium 8.9 Magnesium 2.5 H Total Bilirubin 0.9 ALT 92 H Alkaline Phosphatase 132 H Creatine Kinase Creatine Kinase Index CK-MB (CK-2) Troponin I Total Protein 8.4 H Albumin 4.[address] shows no acute pathology. Discussed with patient if symptoms continue to follow-up with orthopedist as this may be looked at as cervical radiculopathy. Discharge - Discharge Information Problems reviewed: Yes Clinical Impression/Diagnosis: Paresthesia of left upper extremity Condition: Good Disposition: HOME - Follow up/Referral Referrals: Rodriguez Baez MD [Primary Care Provider] - - Patient Discharge Instructions Patient Printed Discharge Instructions: DI for Numbness/tingling Additional Instructions: Please follow-up with your doctor and consider even an orthopedist if symptoms continue. I did not check your cholesterol levels as this may be something to look at - Post Discharge Activity
[2019-06-26 13:20] LABS: BASO % 0.4 % (0-2.0); EOS % 1.7 % (0-4.5); HEMATOCRIT 46.1 % (35.4-49); HEMOGLOBIN 15.7 GM/dL (11.7-16.9); LYMPH % 30.4 % (8-40); MCHC 34.1 g/dl (32.0-35.9); MEAN CELL VOLUME 85.2 fl (80-96); MEAN PLT VOLUME 9.1 fl (7.5-11.1); MONO % 9.5 % (3.8-10.2); PLATELET COUNT 253 K/MM3 (134-434); RBC 5.42 M/mm3 (4.00-5.60); RDW 13.3 % (11.9-15.9)
[2019-06-26 13:39] LABS: INR 0.96 (0.83-1.09); PROTHROMBIN TIME (PATIENT) 11.3 SEC (9.7-13.0)
[2019-06-26 13:42] LABS: ACTIVATED PTT 43.4 SECONDS (25.2-36.5)
[2019-06-26 13:52] LABS: ALBUMIN 4.2 g/dl (3.4-5.0); BILIRUBIN,TOTAL 0.9 mg/dL (0.2-1); CALCIUM 8.9 mg/dL (8.5-10.1); CREATININE 0.9 mg/dL (0.55-1.3); MAGNESIUM 2.5 mg/dL (1.8-2.4); TOT PROT 8.4 g/dl (6.4-8.2)
--- NOTE | 2019-06-26 14:39 | EKG ---
Test Reason : Blood Pressure : / mmHG Vent. Rate : 071 BPM Atrial Rate : 071 BPM P-R Int : 128 ms QRS Dur : 090 ms QT Int : 382 ms P-R-T Axes : 002 001 005 degrees QTc Int : 415 ms NORMAL SINUS RHYTHM NORMAL ECG WHEN COMPARED WITH ECG OF 12-APR-2018 19:46, NO SIGNIFICANT CHANGE WAS FOUND Confirmed by NAFISA EUCEDA MD ([id number]) on 06/26/2019 2:38:57 PM Referred By: Confirmed By:NAFISA EUCEDA MD
[2019-06-26 15:41] VITALS: BP 147/84; PULSE 73
== END 2019-06-26 15:25 | disposition home or self-care (01) ==
LOC: JER 12:01
DX: R20.2 Paresthesia of skin (principal); R03.0 Elevated blood-pressure reading, without diagnosis of hypertension; Z87.891 Personal history of nicotine dependence; Z87.19 Personal history of other diseases of the digestive system
CPT/HCPCS: 36415; 70450-TC; 71046-TC-FY; 80053; 82550; 82553; 83735; 84484; 85025; 85610; 85730; 93005; 93010; 99283-25

== ENCOUNTER 2020-06-15 04:30 | Day surgery (SDC) | payer OTHER ==
[2020-06-09 13:12] VITALS: BMI 29.7
[2020-06-15 10:15] VITALS: TEMP 97.1
[2020-06-15 10:16] VITALS: PULSE 60
[2020-06-15 11:11] VITALS: BP 122/69
== END 2020-06-15 11:05 | disposition home or self-care (01) ==
LOC: JASU-ENDO 04:30
PROVIDERS: ATTEND Internal Medicine Gastroenterology
PROC: 0DBL8ZX Excision of Transverse Colon, Via Natural or Artificial Opening Endoscopic, Diagnostic (ICD-10-PCS; principal; 2020-06-15 11:00)
DX: R10.11 Right upper quadrant pain (principal); D12.3 Benign neoplasm of transverse colon; K64.8 Other hemorrhoids
CPT/HCPCS: 88305-TC

== ENCOUNTER 2021-01-11 13:35 | Emergency (ER) | payer OTHER ==
[2021-01-11 13:57] VITALS: BP 130/86; PULSE 72; TEMP 98.2; BMI 28.8
== END 2021-01-11 18:21 | disposition home or self-care (01) ==
LOC: JER 13:35 → JERFT 13:35
DX: R20.2 Paresthesia of skin (principal); M62.838 Other muscle spasm
CPT/HCPCS: 70450-TC; 72125-TC; 93005; 93010; 99284-25

== ENCOUNTER 2021-08-17 05:19 | Day surgery (SDC) | payer OTHER ==
[2021-08-12 12:35] VITALS: BMI 30.5
[2021-08-17] MEDS ORDERED: MIDAZOLAM HCL 2 MG/2 ML SINGLE DOSE VIAL ONE (09:46)
[2021-08-17] MEDS ORDERED: KETOROLAC TROMETHAMINE 30 MG/1 ML VIAL ONE (09:49)
[2021-08-17 10:57] VITALS: BP 124/78; PULSE 72
[2021-08-17 11:10] VITALS: TEMP 98
== END 2021-08-17 11:05 | disposition home or self-care (01) ==
LOC: JASU-SURG 05:19
PROVIDERS: ATTEND Urology
PROC: 0TF3XZZ Fragmentation in Right Kidney Pelvis, External Approach (ICD-10-PCS; principal; 2021-08-17 09:30)
DX: N20.0 Calculus of kidney (principal)

== ENCOUNTER 2022-05-07 15:33 | Emergency (ER) | payer OTHER ==
[2022-05-07 15:48] VITALS: BP 159/85; PULSE 82; RESP 18; TEMP 98.4; BMI 31.0
[2022-05-07] MEDS ORDERED: DEXAMETHASONE LIQUID 0.5 MG/5 ML PO ONE (16:35)
[2022-05-07] MEDS ORDERED: LIDOCAINE 5% TOPICAL PATCH TP ONE (16:36)
[2022-05-07] MEDS ORDERED: ACETAMINOPHEN 325 MG TABLET (FP) PO ONE (16:36)
[2022-05-07] MEDS ORDERED: LIDOCAINE 5% TOPICAL PATCH ONE (16:38)
[2022-05-07] MEDS ORDERED: ACETAMINOPHEN 325 MG TABLET (FP) ONE (16:39)
[2022-05-07] MEDS ORDERED: DEXAMETHASONE SOD PHOSPHATE 10 MG/1 ML VIAL ONE ×2 (16:39)
[2022-05-07] MEDS ORDERED: diazePAM 5 MG TABLET PO ONE (17:51)
[2022-05-07] MEDS ORDERED: diazePAM 5 MG TABLET ONE (18:08)
[2022-05-07] MEDS ORDERED: LIDOCAINE PATCH REMOVAL MC SCH (22:00)
== END 2022-05-07 19:05 | disposition home or self-care (01) ==
LOC: JERFT 15:33
DX: M54.50 Low back pain, unspecified (principal)
CPT/HCPCS: 99283-25